=== PATIENT | female | born 1995 | race Caucasian/White ===

== ENCOUNTER 2020-02-10 23:13 | Emergency (ER) | payer OTHER ==
[2020-02-10] MEDS ORDERED: TETANUS/DIPHTHERIA/PERTUSSIS 0.5 ML SYRINGE IM ONE (23:42)
--- NOTE | 2020-02-10 23:46 | ED Physician Documentation ---
History of Present Illness - Stated complaint Stated Complaint: THUMB LAC - Chief complaint Chief Complaint: Trauma Ext - History obtained from History obtained from: Patient (The patient is a 24-year-old female who is right-hand dominant presents with a laceration to her left thumb that happened approximately 34 hours prior to my evaluation. She cut her left thumb with a utility knife while opening a box. She has irrigated the wound multiple times But is concerned that she could possibly have an infection she is unsure of her tetanus status.) Review of Systems Constitutional: reports: Reviewed and negative Eyes: reports: Reviewed and negative Ears: reports: Reviewed and negative Nose: reports: Reviewed and negative Throat: reports: Reviewed and negative Cardiac: reports: Reviewed and negative Respiratory: reports: Reviewed and negative GI: reports: Reviewed and negative : reports: Reviewed and negative Skin: reports: Laceration (s) Musculoskeletal: reports: Other (left thumb laceration) Neurologic: reports: Reviewed and negative Psychiatric: reports: Reviewed and negative Endocrine: reports: Reviewed and negative Immunocompromised: reports: Reviewed and negative PD PAST MEDICAL HISTORY - Past Medical History Past Medical History: No - Past Surgical History Past Surgical History: Yes General: Appendectomy - Present Medications Home Medications: Ambulatory Orders Medication Instructions Recorded Confirmed Cephalexin [Keflex] 500 mg PO QID 7 Days #27 capsule 02/11/20 - Allergies Allergies/Adverse Reactions: Allergies Allergy/AdvReac Type Severity Reaction Status Date / Time No Known Drug Allergies Allergy Verified 02/10/20 23:18 - Social History Does the pt smoke?: No Smoking Status: Never smoker Does the pt drink ETOH?: No Does the pt have substance abuse?: No - Immunizations Immunizations are current?: Yes - POLST Patient has POLST: No PD ED PE NORMAL - Vitals Vital signs reviewed: Yes - General General: Alert and oriented X 3, No acute distress, Well developed/nourished - HEENT HEENT: Atraumatic, PERRL, Moist mucous membranes - Neck Neck: Supple, no meningeal sign, No JVD - Cardiac Cardiac: RRR, No murmur, Strong equal pulses - Respiratory Respiratory: No respiratory distress, Clear bilaterally - Abdomen Abdomen: Normal bowel sounds, Soft, Non tender, Non distended, No organomegaly - Back Back: No CVA TTP, No spinal TTP - Derm Derm: Warm and dry, No rash, Other (1 cm laceration to the distalMedial th umb.There is soft tissue swelling and mild erythema compartments are soft she is able to flex and extend at the IP joint as well as the MCP joint on passive and active range of motion. There is no streaking edge blacker strength is 5 out of 5 rad, median, ulnar motor and sensory exam are intact sensations intact to light touch. No involvement of the nailbed.) - Extremities Extremities: No deformity, Other (1 cm laceration to the distalMedial thumb.There is soft tissue swelling and mild erythema compartments are soft she is able to flex and extend at the IP joint as well as the MCP joint on passive and active range of motion. There is no streaking edge blacker strength is 5 out of 5 rad, median, ulnar motor and sensory exam are intact sensations intact to light touch. No involvement of the nailbed) - Neuro Neuro: Alert and oriented X 3 - Psych Psych: Normal mood, Normal affect Results - Vitals Vitals: Vital Signs - 24 hr 02/10/20 23:14 Temperature 36.5 C Heart Rate 68 Respiratory 18 Rate Blood Pressure 119/75 O2 Saturation 100 Procedures - General procedure General procedure: Wound was irrigated thoroughly, no foreign bodies identified, given the fact the patient's presenting 30 hours after injury this wound will be allowed to heal by secondary intention.Bacitracin applied and pressure dressing applied.Neurovascular intact compartments are soft sensations intact light touch. PD MEDICAL DECISION MAKING - ED course Complexity details: considered differential (Delayed wound healing, cellulitis. Given the fact that her wound is over 30 hours old she does have surrounding erythema wound was thoroughly irrigated and will not be closed with sutures or Dermabond given the fact that she presents 30 hours after the initial injury we will allow this wound to heal by secondary intention and start the patient on Keflex her tetanus was updated as well.) Departure - Departure Disposition: 01 Home, Self Care Clinical Impression: Laceration of left thumb Qualifiers: Encounter type: initial encounter Damage to nail status: unspecified Foreign body presence: unspecified Qualified Code(s): S61.012A - Laceration without foreign body of left thumb without damage to nail, initial encounter Cellulitis Qualifiers: Site of cellulitis: extremity Site of cellulitis of extremity: finger Laterality: left Qualified Code(s): L03.012 - Cellulitis of left finger Condition: Stable Instructions: ED Laceration Small Superf No Sutr Follow-Up: your, doctor [Other] - Within 3 Days Prescriptions: Cephalexin [Keflex] 500 mg PO QID 7 Days #27 capsule Comments: keep wound protected at all times, apply neosporin 2 times daily, keep dressed with pressure bandage, follow up on [facility] on Thursday for a wound check. take antibiotics as directed.
--- NOTE | 2020-02-11 00:08 | XRAY Report ---
Reason: thumb lac Procedure Date: 02/11/2020 Accession Number: [id number] / [id number] Procedure: XR - Hand 3 View LT CPT Code: Final Report FULL RESULT: EXAM: LEFT HAND RADIOGRAPHY EXAM DATE: 02/10/2020 11:38 PM. CLINICAL HISTORY: Thumb lac. COMPARISON: None. TECHNIQUE: 4 views. FINDINGS: Bones: Normal. No fractures or bone lesions. Joints: Normal. No subluxations. Soft Tissues: Mild soft tissue swelling of palmar aspect of distal thumb. No radiopaque foreign body. IMPRESSION: 1. No fracture or malalignment. 2. Soft tissue swelling of the thumb. Correlate for soft tissue injury. RADIA
[2020-02-11] MEDS ORDERED: BACITRACIN ZINC OINT 1 PACKET TOP STA (00:11)
[2020-02-11] MEDS ORDERED: cephALEXin 250 MG CAPSULE PO STA (00:11)
[2020-02-11 00:23] VITALS: BP 118/76
== END 2020-02-11 00:21 | disposition home or self-care (01) ==
LOC: ED 23:13
DX: S61.012A Laceration without foreign body of left thumb without damage to nail, initial encounter (principal); W26.0XXA Contact with knife, initial encounter; Y93.89 Activity, other specified; L03.012 Cellulitis of left finger
CPT/HCPCS: 73130; 99283; 99284; A9270

== ENCOUNTER 2022-05-07 16:23 | Emergency (ER) | payer OTHER ==
[2022-05-07 16:40] VITALS: BP 116/67
[2022-05-07] MEDS ORDERED: IBUPROFEN 600 MG TABLET PO STA (16:54)
[2022-05-07] MEDS ORDERED: AMOXICILLIN 250 MG CAPSULE PO STA (16:54)
[2022-05-07] MEDS ORDERED: HYDROcod/ACETAM 5/325 MG TABLET PO STA (16:54)
--- NOTE | 2022-05-07 16:56 | ED Physician Documentation ---
PD HPI URI - Stated complaint Stated Complaint: EARACHE,NAUSEA,SINUS - Chief complaint Chief Complaint: Heent - History obtained from History obtained from: Patient - Additional information Additional information: 4 days of severe left ear pain that was worse while flying yesterday. She also has cough and runny nose. No fevers. No possibility of . Review of Systems Constitutional: denies: Fever, Chills Ears: reports: Loss of hearing, Ear pain Nose: reports: Rhinorrhea / runny nose PD PAST MEDICAL HISTORY - Past Surgical History Past Surgical History: Yes General: Appendectomy - Present Medications Home Medications: Ambulatory Orders Medication Instructions Recorded Confirmed cephALEXin [Keflex] 500 mg PO QID 7 Days #27 capsule 02/11/20 Amoxicillin 500 mg PO TID #30 cap 05/07/22 HYDROcod/ACETAM 5/325 [Alliance 5/325] 1 - 2 tab PO Q6H PRN #15 tablet 05/07/22 Ibuprofen [Motrin] 800 mg PO Q8H PRN #20 tablet 05/07/22 - Allergies Allergies/Adverse Reactions: Allergies Allergy/AdvReac Type Severity Reaction Status Date / Time No Known Drug Allergies Allergy Verified 05/07/22 16:40 - Social History Does the pt smoke?: No Smoking Status: Never smoker Does the pt drink ETOH?: No Does the pt have substance abuse?: No - Immunizations Immunizations are current?: Yes - POLST Patient has POLST: No PD ED PE NORMAL - Vitals Vital signs reviewed: Yes - General General: Alert and oriented X 3, No acute distress - HEENT HEENT: Pharynx benign, Other (Severe left otitis media) - Cardiac Cardiac: RRR, No murmur - Respiratory Respiratory: No respiratory distress, Clear bilaterally - Neuro Neuro: Alert and oriented X 3, Normal speech Results - Vitals Vitals: Vital Signs - 24 hr 05/07/22 16:35 Temperature 36.7 C Heart Rate 85 Respiratory 14 Rate Blood Pressure 116/67 O2 Saturation 99 Oxygen O2 Source Room air Departure - Departure Disposition: 01 Home, Self Care Clinical Impression: LOM (left otitis media) Qualifiers: Otitis media type: suppurative Chronicity: acute Recurrence: non-recurrent Spontaneous tympanic membrane rupture: without spontaneous rupture Qualified Code(s): H66.002 - Acute suppurative otitis media without spontaneous rupture of ear drum, left ear Condition: Good Record reviewed to determine appropriate education?: Yes Instructions: ED Otitis Media Acute Adult Prescriptions: Amoxicillin 500 mg PO TID #30 cap Ibuprofen [Motrin] 800 mg PO Q8H PRN #20 tablet PRN Reason: PAIN &/OR FEVER HYDROcod/ACETAM 5/325 [Alliance 5/325] 1 - 2 tab PO Q6H PRN #15 tablet PRN Reason: Pain Comments: Make an appointment to followup with your physician. Should be seen again in ~1 week. Return if worse. I sent prescriptions to [facility] in [place]. I am prescribing a short course of narcotic pain medication for you. These are potentially dangerous and addictive medications that should be used carefully. These medications may constipate you. Take an [id number] stool softener (docusate) twice daily with plenty of water while taking these medications. If you go 24 hours without a bowel movement, take hofp-gel-[id number] miralax, per package instructions. Do not drink or drive while taking these medications. If you received narcotic or sedating medications while in the emergency department, do not drive for 24 hours. Store this medication in a safe, secure place and out of reach of children. It is a violation of federal law to give or sell this medication to another person or to use in a manner other than prescribed. The ED will not refill narcotic prescriptions, including prescriptions lost or stolen. To dispose of unwanted medications: 1. [facility] at [address] in [place] has a medication drop box. They accept prescription medications (in pill form) Thursday through Thursday 9:00 a.m. to 5:00 p.m. 2. The [facility] [place] [employer] accepts prescription medications (in pill form only) for disposal year round. Call for more information. 3. Contact the [facility] for the next [facility] sponsored prescription drug collection event. , [phone], or [phone];
== END 2022-05-07 17:09 | disposition home or self-care (01) ==
LOC: ED 16:23
DX: H66.002 Acute suppurative otitis media without spontaneous rupture of ear drum, left ear (principal)
CPT/HCPCS: 99282; 99283; A9270

== ENCOUNTER 2022-12-30 13:20 | Outpatient (CLI) | payer OTHER ==
[2022-12-30 18:00] LABS: HCT - HEMATOCRIT 41.9 % (37.0-47.0); HGB - HEMOGLOBIN 13.8 g/dL (12.0-16.0)
== END 2022-12-30 13:45 | disposition home or self-care (01) ==
LOC: LAB.N 13:20
PROVIDERS: ATTEND Registered Nurse
DX: N93.9 Abnormal uterine and vaginal bleeding, unspecified (principal)
CPT/HCPCS: 36415; 84702; 85014; 85018